=== PATIENT | female | born 1990 | race Caucasian/White ===

== ENCOUNTER 2020-06-20 14:36 | Outpatient (CLI) | payer OTHER, SELFPAY ==
[2020-06-20 18:30] LABS: Basophils Percent Auto 0.3 % (0.2-1.2); Eosinophils Absolute Auto 0.1 K/mm3 (0-0.3); Eosinophils Percent Auto 0.8 % (0-4.4); Hematocrit 36.2 % (37.0-47.0); Hemoglobin 12.3 g/dL (12.0-15.0); Immature Granulocyte Absolute 0.06 K/mm3 (0.00-0.031); Immature Granulocyte Percent A 0.7 % (0-0.5); Lymphocytes Absolute Auto 1.88 K/mm3 (0.9-3.2); Lymphocytes Percent Auto 21.6 % (18.3-44.2); Mean Corpuscular Hemoglobin 31.5 pg (26-34); Mean Corpuscular Volume 92.8 fl (80-100); Mean Platelet Volume 11.5 fl (7.4-10.4); Monocytes Absolute Auto 0.7 K/mm3 (0.1-0.6); Neutrophils Percent Auto 68.6 % (45.5-73.1); Platelet Count Result 263 k/mm3 (150-375); Red Cell Distribution Width 11.5 % (11.5-14.5); White Blood Count 8.7 K/mm3 (4.5-10.0)
[2020-06-20 18:33] LABS: Add Urine Microscopic? NO; Appearance Urine Clear (Clear); Bilirubin Urine Negative (Negative); Blood Urine Negative (Negative); Color Urine Yellow (Yellow); Glucose Urine UA Negative (Negative); Ketones Urine Negative (Negative); Leukocyte Esterase Ur Negative LEU/UL (NEGATIVE); Nitrate Urine Negative (Negative); Protein Urine Negative (Negative); Specific Grav Ur 1.011 (1.001-1.035); Urobilinogen Urine Negative mg/dL (<2.0)
[2020-06-20 19:34] LABS: Vitamin D 25 Hydroxy 47.2 ng/mL
[2020-06-20 19:49] LABS: Thyroid Stimulating Hormone 0.856 uIU/mL (0.465-4.680)
[2020-06-20 19:57] LABS: Hepatitis B Surface Antigen Negative (Negative); Rubella IgG Antibody 1.2 IU/ML
[2020-06-20 20:39] LABS: HIV 1/2 Ab P24 Ag Result Negative (Negative)
[2020-06-20 20:50] LABS: Hepatitis C Virus Antibody Negative (Negative)
[2020-06-21 06:59] LABS: Rapid Plasma Reagin Non-Reactive (NonReactive)
[2020-06-24 00:28] LABS: Hematocrit 36.4 % (35.0-45.0); Hemoglobin 12.2 g/dL (11.7-15.5); MCH 32.5 pg (27.0-33.0); MCV 97.1 FL (80.0-100.0); RDW 12.2 % (11.0-15.0); Red Blood Cell Count 3.75 Mill/uL (3.80-5.10)
[2020-06-28 19:31] LABS: CF Result POSITIVE (NEGATIVE); Ethnicity CAUCASIAN
== END 2020-06-20 14:37 | disposition home or self-care (01) ==
LOC: ANHBWCLAB 14:37
PROVIDERS: Visit Provider Obstetrics & Gynecology
DX: Z34.91 Encounter for supervision of normal pregnancy, unspecified, first trimester (principal); Z3A.11 11 weeks gestation of pregnancy
CPT/HCPCS: 36415; 81003; 81220; 82306; 83021; 84443; 85025; 86592; 86703; 86762; 86787; 86803; 86850; 86900; 86901; 87086; 87088; 87340; G0432

== ENCOUNTER 2020-10-17 14:39 | Outpatient (CLI) | payer OTHER, SELFPAY ==
[2020-10-17 15:05] LABS: Alanine Aminotransferase 24 U/L (4-35); Albumin Level 3.7 g/dL (3.5-5.1); Alkaline Phosphatase 43 U/L (38-126); Aspartate Amino Transferase 20 U/L (14-36); Bilirubin,Total 0.3 mg/dL (0.2-1.3)
[2020-10-23 22:27] LABS: Chenodeoxycholic Acid 0.8 umol/L (< OR = 3.9); Cholic Acid <0.5 umol/L (< OR = 2.8); Deoxycholic Acid 0.8 umol/L (< OR = 2.3); Total Bile Acids 1.6 umol/L (< OR = 8.3)
== END 2020-10-17 14:40 | disposition home or self-care (01) ==
PROVIDERS: Visit Provider Obstetrics & Gynecology
DX: R10.11 Right upper quadrant pain (principal)
CPT/HCPCS: 36415; 80076; 82542

== ENCOUNTER 2020-11-15 16:36 | Outpatient (CLI) | payer OTHER, SELFPAY ==
[2020-11-15 17:07] LABS: Basophils Percent Auto 0.4 % (0.2-1.2); Eosinophils Absolute Auto 0.1 K/mm3 (0-0.3); Eosinophils Percent Auto 0.8 % (0-4.4); Hematocrit 34.7 % (37.0-47.0); Hemoglobin 11.8 g/dL (12.0-15.0); Immature Granulocyte Percent A 1.9 % (0-0.5); Lymphocytes Absolute Auto 2.05 K/mm3 (0.9-3.2); Lymphocytes Percent Auto 19.2 % (18.3-44.2); Mean Corpuscular Hemoglobin 31.1 pg (26-34); Mean Corpuscular Volume 91.3 fl (80-100); Mean Platelet Volume 10.9 fl (7.4-10.4); Monocytes Absolute Auto 0.9 K/mm3 (0.1-0.6); Neutrophils Absolute Auto 7.4 K/mm3 (1.3-6.7); Neutrophils Percent Auto 69.7 % (45.5-73.1); Platelet Count Result 197 k/mm3 (150-375); Red Cell Distribution Width 11.9 % (11.5-14.5); White Blood Count 10.7 K/mm3 (4.5-10.0)
[2020-11-15 17:59] LABS: HIV 1/2 Ab P24 Ag Result Negative (Negative)
[2020-11-16 11:20] LABS: Rapid Plasma Reagin Non-Reactive (NonReactive)
== END 2020-11-15 16:37 | disposition home or self-care (01) ==
LOC: ANHLAB 16:37
PROVIDERS: Visit Provider Obstetrics & Gynecology
DX: Z34.90 Encounter for supervision of normal pregnancy, unspecified, unspecified trimester (principal); Z3A.00 Weeks of gestation of pregnancy not specified
CPT/HCPCS: 36415; 85025; 86592; 86703; G0432

== ENCOUNTER 2021-01-11 11:49 | Outpatient (RCR) | payer OTHER, SELFPAY ==
[2021-01-03 13:09] VITALS: BP 127/70; PULSE 73
--- NOTE | ~2021-01-11 | US_ITS ---
EXAMINATION: US OB limited DATE: 01/11/2021 12:28 INDICATION: Assess amniotic fluid index in a term , past due date TECHNIQUE: Real-time ultrasound of the pelvis was performed. The interpreting radiologist was not pre sent for the study. COMPARISON: None. FINDINGS: There is a single living fetus in vertex presentation. The placenta is anterior fundal. heart rate is 132 beats per minute (bpm). The amniotic fluid index is 15.6 cm, which is normal (5th%-95%: 7 .1-21.4 cm at 40 weeks estimated gestational age). IMPRESSION: 1. Single living fetus in vertex presentation with heart rate of 132 bpm. 2. Normal amniotic fluid index of 15.6 cm. Reviewed, dictated and finalized at location A. IMPRESSION: 1. Single living fetus in vertex presentation with heart rate of 132 bpm . 2. Normal amniotic fluid index of 15.6 cm.
[2021-01-11 12:35] VITALS: BP 123/66; PULSE 70
== END 2021-02-13 09:33 | disposition home or self-care (01) ==
LOC: ANHOBOP 11:49
PROVIDERS: Visit Provider Obstetrics & Gynecology
DX: O36.8330 Maternal care for abnormalities of the fetal heart rate or rhythm, third trimester, not applicable or unspecified (principal); Z3A.39 39 weeks gestation of pregnancy; O48.0 Post-term pregnancy; Z3A.40 40 weeks gestation of pregnancy
CPT/HCPCS: 59025; 76815

== ENCOUNTER 2021-01-16 05:16 | Inpatient (IN) | payer OTHER, SELFPAY ==
[2021-01-16] VITALS (23 sets, daily range): BP systolic 99–129; BP diastolic 46–95; PULSE 57–94; RESP 16–18; TEMP 36.2–36.8; BMI 35.7
[2021-01-16 05:59] LABS: Basophils Percent Auto 0.4 % (0.2-1.2); Eosinophils Absolute Auto 0.1 K/mm3 (0-0.3); Hematocrit 36.8 % (37.0-47.0); Hemoglobin 12.7 g/dL (12.0-15.0); Immature Granulocyte Absolute 0.21 K/mm3 (0.00-0.031); Immature Granulocyte Percent A 2.2 % (0-0.5); Lymphocytes Absolute Auto 2.27 K/mm3 (0.9-3.2); Lymphocytes Percent Auto 23.5 % (18.3-44.2); Mean Corpuscular HGB Conc 34.5 g/dl (32-36); Mean Corpuscular Volume 92.7 fl (80-100); Mean Platelet Volume 11.5 fl (7.4-10.4); Monocytes Absolute Auto 0.8 K/mm3 (0.1-0.6); Monocytes Percent Auto 8.4 % (2.6-8.5); Neutrophils Absolute Auto 6.2 K/mm3 (1.3-6.7); Neutrophils Percent Auto 64.5 % (45.5-73.1); Platelet Count Result 199 k/mm3 (150-375); Red Blood Count 3.97 M/mm3 (4.2-5.4); Red Cell Distribution Width 11.9 % (11.5-14.5); White Blood Count 9.6 K/mm3 (4.5-10.0)
--- NOTE | 2021-01-16 06:45 | LDADM ---
This patient, Valeria Haq, was admitted to Labor/Delivery/Recovery 103 on 01/16/21 at 05:16. Plans for labor, pain management and were discussed with patient. Patient/family oriented to hospital policies and general routines including ID bracelet, bed and alarms, visiting hours, pain management, procedures, bathroom and other care routines, personal items, smoking policy, room service/diet and guest tray routines, infant security routines, and visiting hours. Patient/Family are encouraged to report perceived risks to care and to ask questions if they do not understand what they are told or what they should do. See OBIX for further documentation.
[2021-01-16] MEDS: DINOPROSTONE 10 MG VAG INSERT VAGINAL (07:40)
[2021-01-16] MEDS: LACTATED RINGERS 1,000 ML 125 ML IV CONT (07:48)
[2021-01-16] MEDS: AMPICILLIN 2 GM/NS 100 ML 2 GM/100 ML BAG IVPB (07:50)
[2021-01-16 10:28] LABS: Rapid Plasma Reagin Non-Reactive (NonReactive)
[2021-01-16] MEDS: AMPICILLIN 1 GM/NS 50 ML 1 GM/50 ML BAG IVPB ×3 (11:51→19:48)
--- NOTE | 2021-01-16 16:41 | WPDANESEPP ---
Anes - Eval Pre Procedure Procedure: labor epidural Date/Time: 01/16/21 16:41 Surgeon: russell Pre Op Diagnosis: IOL Patient Data Age: 30 Gender: F Height: 1.61 m Weight: 93 kg Last Vital Signs Temp 36.6 C 01/16/21 13:30 Pulse 67 01/16/21 14:01 Resp 16 01/16/21 14:13 BP 118/56 L 01/16/21 14:01 Allergies Allergy/AdvReac Type Severity Reaction Status Date / Time No Known Allergies Allergy Verified 01/16/21 08:12 Home Medications Medication Instructions Recorded Confirmed Type fluticasone propionate 50 1 spray INTRANASAL DAILY 05/19/20 01/16/21 History mcg/actuation nasal spray,suspension magnesium 400 mg PO DAILY 12/09/20 01/16/21 History omega-3 fatty acids [Fish Oil] 2,500 mg PO DAILY 12/09/20 01/16/21 History prenat.vits,frank,xdc-lmce-kjalh 1 tablet PO DAILY 12/09/20 01/16/21 History [ #2] famotidine [Pepcid] 20 mg PO DAILY 01/16/21 01/16/21 History Laboratory Tests 01/16/21 01/16/21 01/16/21 05:53 05:53 05:53 WBC 9.6 K/mm3 K/mm3 (4.5-10.0) RBC 3.97 M/mm3 L M/mm3 (4.2-5.4) Hgb 12.7 g/dL g/dL (12.0-15.0) Hct 36.8 % L % (37.0-47.0) MCV 92.7 fl fl (80-100) MCH 32.0 pg pg (26-34) MCHC 34.5 g/dl g/dl (32-36) RDW 11.9 % % (11.5-14.5) Plt Count 199 k/mm3 k/mm3 (150-375) MPV 11.5 fl H fl (7.4-10.4) Immature Gran % (Auto) 2.2 % H % (0-0.5) Neut % (Auto) 64.5 % % (45.5-73.1) Lymph % (Auto) 23.5 % % (18.3-44.2) [place] % (Auto) 8.4 % % (2.6-8.5) Eos % (Auto) 1.0 % % (0-4.4) Baso % (Auto) 0.4 % % (0.2-1.2) Lymph # (Auto) 2.27 K/mm3 K/mm3 (0.9-3.2) [place] # (Auto) 0.8 K/mm3 H K/mm3 (0.1-0.6) Eos # (Auto) 0.1 K/mm3 K/mm3 (0-0.3) Baso # (Auto) 0.0 K/mm3 K/mm3 (0.0-0.1) Abs Immat Gran (auto) 0.21 K/mm3 H K/mm3 (0.00-0.031) Absolute Neuts (auto) 6.2 K/mm3 K/mm3 (1.3-6.7) Absolute Nucleated RBC 0.0 K/mm3 K/mm3 (0.0-0.012) Nucleated RBC % 0.0 % % (0.0-0.2) RPR Non-reactive (NonReactive) Blood Type A Positive Antibody Screen Negative Patient hx anesthesia problems: none Family hx anesthesia problems: none Results Review: All pre-operative results and documents have been reviewed as part of the pre-operative evaluation. [facility] Past Medical History Medical History Acid reflux Anxiety Cystic fibrosis carrier Depression IBS (irritable bowel syndrome) Surgical History Surgical History No pertinent past surgical history Family History Family History Grandparent Carcinoma of colon Hypertension Social History Social History Smoking status: Former smoker Tobacco type: cigarettes Second hand tobacco smoke exposure: No Alcohol intake: current Substance use: never Substance use type: does not use and marijuana Spiritual care concerns: No Exam Day of Procedure 01/16/21 16:41
[2021-01-16] MEDS: miSOPROStol 25 MCG TABLET VAGINAL (21:26)
[2021-01-17] VITALS (116 sets, daily range): BP systolic 89–222; BP diastolic 38–199; PULSE 50–161; RESP 13–18; TEMP 36.6–37.2; O2SAT 97–100
[2021-01-17] MEDS: AMPICILLIN 1 GM/NS 50 ML 1 GM/50 ML BAG IVPB ×4 (00:02→13:07)
[2021-01-17] MEDS: fentaNYL CITRATE INJ (*CRX) 100 MCG/2 ML VIAL 50 MCG IV PUSH ×2 (01:54→03:11)
[2021-01-17] MEDS: miSOPROStol 25 MCG TABLET VAGINAL (01:56)
[2021-01-17] MEDS: fentaNYL CITRATE INJ (*CRX) 100 MCG/2 ML VIAL IV PUSH (04:48)
[2021-01-17] MEDS: LACTATED RINGERS 1,000 ML 125 ML IV CONT ×3 (04:51→16:24)
--- NOTE | 2021-01-17 06:16 | PM.IMHP ---
H&P: HPI History of Present Illness Date/Time: 01/16/21 06:16 Patient at 41 weeks by EDC of 01/08/21 which was established by LMP 04/03/20 consistent with a 7 week ultrasound. PNC has been uncomplicated. She was found to be a CF carrier. Partner recommended for testing. She has been counseled regarding risk benefit of medical induction of labor and risk of postdates. She agreed to induction at 41 weeks. GBS positive. Labs reviewed. Chief Complaint: Medical induction of labor. Review of Systems Review of Systems: All systems reviewed & are unremarkable except as noted in HPI and below Constitutional: Constitutional: Reports no additional constitutional complaints and Denies headache(s) Eyes: Eyes: Denies spots in vision ENT: Reports system reviewed and no additional complaints, except as documented and Denies headache(s) Cardiovascular: Cardiovascular: Denies chest pain and Denies dyspnea Respiratory: Respiratory: Denies dyspnea Gastrointestinal: Gastrointestinal: Reports no additional gastrointestinal complaints Genitourinary: Genitourinary: Reports amenorrhea Musculoskeletal: Musculoskeletal: Reports no additional musculoskeletal complaints Integumentary/Breasts: Skin/Breast: Denies breast mass and Denies rash Neurologic: Denies headache(s) Psychiatric: Psychiatric: Reports no additional psychiatric complaints PMFSH Past Medical History Medical History Acid reflux Anxiety Cystic fibrosis carrier Depression IBS (irritable bowel syndrome) Surgical History Surgical History No pertinent past surgical history Family History Family History Grandparent Carcinoma of colon Hypertension Social History Social History Smoking status: Former smoker Tobacco type: cigarettes Second hand tobacco smoke exposure: No Alcohol intake: current Substance use: never Substance use type: does not use and marijuana Spiritual care concerns: No Meds Home Medications and Allergies Home Medications Medication Instructions Recorded Confirmed Type fluticasone propionate 50 1 spray INTRANASAL DAILY 05/19/20 01/16/21 History mcg/actuation nasal spray,suspension magnesium 400 mg PO DAILY 12/09/20 01/16/21 History omega-3 fatty acids [Fish Oil] 2,500 mg PO DAILY 12/09/20 01/16/21 History prenat.vits,frank,hid-fyok-fgdza 1 tablet PO DAILY 12/09/20 01/16/21 History [ #2] famotidine [Pepcid] 20 mg PO DAILY 01/16/21 01/16/21 History Allergies Allergy/AdvReac Type Severity Reaction Status Date / Time No Known Allergies Allergy Verified 01/16/21 08:12 Vital Signs Vital Signs - 24 hr 01/16/21 06:33 01/16/21 06:35 01/16/21 07:01 Temperature 97.1 F L Pulse Rate 66 57 L Respiratory Rate 18 Blood Pressure 116/56 L 99/46 L 01/16/21 07:45 01/16/21 07:53 01/16/21 08:01 Temperature Pulse Rate 68 70 Respiratory Rate 18 Blood Pressure 124/72 100/71 01/16/21 08:16 01/16/21 09:55 01/16/21 10:01 Temperature 97.6 F Pulse Rate 83 64 61 Respiratory Rate 18 Blood Pressure 112/64 117/64 122/67 01/16/21 11:01 01/16/21 12:01 01/16/21 12:30 Temperature Pulse Rate 64 67 Respiratory Rate 16 Blood Pressure 115/58 L 120/63 01/16/21 13:30 01/16/21 13:31 01/16/21 14:01 Temperature 98 F Pulse Rate 64 67 Respiratory Rate 18 Blood Pressure 129/69 118/56 L 01/16/21 14:13 01/16/21 18:44 01/16/21 19:52 Temperature Pulse Rate 71 62 Respiratory Rate 16 Blood Pressure 104/92 H 127/68 01/16/21 20:12 01/16/21 22:01 01/16/21 22:31 Temperature 98.2 F Pulse Rate 61 60 Respiratory Rate Blood Pressure 102/57 L 105/57 L 01/16/21 23:01 01/16/21 23:31 01/17/21 02:03 Temperature Pulse Rate 66 94 68 Respira
--- NOTE | 2021-01-17 06:24 | PM.OBPNVD ---
OB - PN: Subj Subjective Date/time seen: 01/16/21 0830 Cat 1 tracing ctx mild q 4 Continue cervidil. OB - PN: Obj Data Labs CBC & Chem 7: 01/16/21 05:53 Labs: Laboratory Results - last 24 hr 01/16/21 01/16/21 05:53 05:53 RPR Non-reactive Blood Type A Positive Antibody Screen Negative OB - PN A/P Time Spent With Patient Time: Total time spent is greater than 50% in coordination of care (as documented) at patient's floor/unit and/or counseling patient:
[2021-01-17] MEDS: OXYTOCIN 30 UNITS/NS 500 ML 30 UNITS/500 ML BAG 6 UNITS IV CONT (08:50)
--- NOTE | 2021-01-17 10:24 | PM.OBPNVD ---
OB - PN: Subj Subjective Date/time seen: 01/17/21 0805 FHT 125 Cat 1 ctx q 3-4 cx 1.5/75-80%,-2 AROM clear Will start Pitocin Patient has received epidural OB - PN: Obj Data Labs CBC & Chem 7: 01/16/21 05:53 Labs: Laboratory Results - last 24 hr 01/16/21 05:53 RPR Non-reactive OB - PN A/P Time Spent With Patient Time: Total time spent is greater than 50% in coordination of care (as documented) at patient's floor/unit and/or counseling patient:
[2021-01-17] MEDS: ONDANSETRON INJ 4 MG/2 ML VIAL IV PUSH (13:07)
[2021-01-17] MEDS: ceFAZolin 2 GM/D5W 50 ML 2 GM/50 ML BAG 100 GM (16:45)
--- NOTE | 2021-01-17 17:01 | WPDANESEPP ---
Anes - Eval Pre Procedure Procedure: Operation Date: 01/17/21 16:45 Proposed Procedures p Section - Brennon Hutchins MD Date/Time: 01/17/21 17:01 Pre Op Diagnosis: IOL Patient Data Age: 30 Gender: F Height: 1.61 m Weight: 93 kg Last Vital Signs Temp 36.8 C 01/17/21 15:00 Pulse 78 01/17/21 16:32 Resp 16 01/16/21 14:13 BP 222/199 H 01/17/21 16:42 Pulse Ox 100 01/17/21 08:45 Allergies Allergy/AdvReac Type Severity Reaction Status Date / Time No Known Allergies Allergy Verified 01/16/21 08:12 Home Medications Medication Instructions Recorded Confirmed Type fluticasone propionate 50 1 spray INTRANASAL DAILY 05/19/20 01/16/21 History mcg/actuation nasal spray,suspension magnesium 400 mg PO DAILY 12/09/20 01/16/21 History omega-3 fatty acids [Fish Oil] 2,500 mg PO DAILY 12/09/20 01/16/21 History prenat.vits,frank,ktr-ndem-revym 1 tablet PO DAILY 12/09/20 01/16/21 History [ #2] famotidine [Pepcid] 20 mg PO DAILY 01/16/21 01/16/21 History Patient hx anesthesia problems: none Family hx anesthesia problems: none Results Review: All pre-operative results and documents have been reviewed as part of the pre-operative evaluation. PMFSH Past Medical History Medical History Acid reflux Anxiety Cystic fibrosis carrier Depression IBS (irritable bowel syndrome) Surgical History Surgical History No pertinent past surgical history Family History Family History Grandparent Carcinoma of colon Hypertension Social History Social History Smoking status: Former smoker Tobacco type: cigarettes Second hand tobacco smoke exposure: No Alcohol intake: current Substance use: never Substance use type: does not use and marijuana Spiritual care concerns: No Exam Day of Procedure 01/17/21 17:01
--- NOTE | 2021-01-17 18:05 | PM.OBPNVD ---
OB - PN: Subj Subjective Date/time seen: 01/17/21 18:05 At approximately 1615 tracing with 7 min bradycardic episode relieved with position and pitocin off. Prior to that had non repetitive mild late. Moderate variability. Ctx q 2. Cervix 3.5-4/ 80%effaced. IUPC and amnioinfusion placed. Earlier pitocin was stopped due to repetitive moderate variables. Cervix then was 3 cm. Pitocin restarted and had intermittent late nonrepetitive decels and mild intermittent variables and then had the bradycardic episode which she was recommended for ceserean delivery. Tracing category 2 remote from delivery. Recommendation for primary ceserean section for intolerance to labor. She was informed of risk benefit of ceserean section. OB - PN: Obj Data Labs CBC & Chem 7: 01/16/21 05:53 OB - PN A/P Time Spent With Patient Time: Total time spent is greater than 50% in coordination of care (as documented) at patient's floor/unit and/or counseling patient:
--- NOTE | 2021-01-17 18:20 | P.OP_ITS ---
Procedure Note - Detailed Date of Procedure 01/18/21 Pre-op Diagnosis 1. intolerance to labor Post-op Diagnosis same Procedure Performed Primary low transverse ceserean section. Surgeon Brennon Hutchins MD Anesthesia epidural Indications Category 2 tracing remote from delivery. intolerance to labor. Findings Male , in the LOP position. Bandelero cord around trunk twice and the arm. Normal uterus fallopian tubes and ovaries. Description of Procedure After informed consent, risks and benefits of the procedure was discussed with the patient. The patient was taken to the operating room where she was placed in the dorsal lithotomy position with leftward tilt. After the prior placed epidural anesthesia was found to be adequate, she was then prepped and draped in the usual sterile fashion. A Pfannenstiel skin incision was made with a scalpel and carried through to the underlying layer of fascia. The fascia was then nicked in the midline, extending bilaterally. The fascia was dissected off the rectus muscles bluntly and sharply, superiorly and inferiorly. The rectus muscles were in the midline, and peritoneum was identified and entered bluntly. The pelvic organs were visualized. The bladder blade was then inserted. The vesicouterine peritoneum was identified and entered sharply with Metzenbaum scissors and extended bilaterally and then the bladder flap was created digitally. The low transverse uterine incision was then made with the scalpel and extended with bilateral index fingers in a crescent-shaped fashion. The head was delivered and the rest of the infa nt was delivered. The cord was wrapped around the abdomen twice and the arm was also enclosed an arm. The cord was untangled from the trunk and arm. The nose and mouth suctioned. The cord was clamped twice and cut. The infant was then handed off to the awaiting pediatric staff. The placenta was then delivered manually. The uterine cavity was sponge curretted. The uterus was then exteriorized. The uterine incision was then closed with 0 vicryl in a running locked fashion. A figure of eight of 0 vicryl at the right of incision was used for hemostasis. Hemostasis noted. A second layer of 0 vicryl was used in an imbricating fashion for hemostasis. The uterus was then returned to the abdomen. Bilateral gutters were cleared off all clots and debris. The uterine incision was noted to be hemostatic. Interceed placed on uterine incision and vertically on front of uterus. The muscle bellies were inspected and noted to be hemostatic. The subfascial layer was noted to be hemostatic, and the fascia was closed with 0 Vicryl in a running fashion. The subcutaneous layer was then closed with 3-0 Vicryl in a subcutaneous fashion. The skin was closed with dissolveable robert. Skin dermabond applied at incision. All instruments, needle, and lap counts were correct x3. The patient was taken to the recovery room in stable condition. Estimated Blood Loss -710.0 Urine Output -200.0
[2021-01-17] MEDS: IBUPROFEN 600 MG TABLET PO (19:51)
--- NOTE | 2021-01-17 20:27 | OBPPTRN ---
Patient transferred to post room #288 via stretcher. Support person, Jani, present. Oriented to unit, room, information board, rooming in, admission packet and security measures. Patient verbalizes understanding.
[2021-01-17] MEDS: HYDROcodone/acetaminophen (*CRX) 10-325 MG TABLET 1 TAB PO (20:58)
[2021-01-17] MEDS: LANOLIN (LANSINOH) 7.5 GM CREAM 1 APPLIC TOPICAL (20:59)
[2021-01-17] MEDS: HYDROmorphone HCL INJ (*CRX) 1 MG/ML SYR 0.5 MG IV PUSH (21:40)
[2021-01-17] MEDS: DEXTROSE 5%/0.45% SOD CHL 1,000 ML 125 ML IV CONT (23:30)
[2021-01-18] VITALS: BP 99/58; PULSE 60; RESP 16; TEMP 36.9; O2SAT 97
[2021-01-18] MEDS: ONDANSETRON INJ 4 MG/2 ML VIAL IV PUSH (00:37)
[2021-01-18] MEDS: KETOROLAC 30 MG/ML VIAL (*BKC) IV PUSH (00:37)
[2021-01-18 03:55] VITALS: BP 99/54; PULSE 68; RESP 16; TEMP 36.8; O2SAT 99
[2021-01-18 05:15] LABS: Basophils Percent Auto 0.3 % (0.2-1.2); Eosinophils Percent Auto 0.2 % (0-4.4); Hematocrit 33.5 % (37.0-47.0); Hemoglobin 11.2 g/dL (12.0-15.0); Immature Granulocyte Absolute 0.14 K/mm3 (0.00-0.031); Immature Granulocyte Percent A 1.1 % (0-0.5); Lymphocytes Absolute Auto 0.96 K/mm3 (0.9-3.2); Lymphocytes Percent Auto 7.3 % (18.3-44.2); Mean Corpuscular HGB Conc 33.4 g/dl (32-36); Mean Corpuscular Volume 95.7 fl (80-100); Monocytes Absolute Auto 0.7 K/mm3 (0.1-0.6); Monocytes Percent Auto 5.6 % (2.6-8.5); Neutrophils Absolute Auto 11.2 K/mm3 (1.3-6.7); Neutrophils Percent Auto 85.5 % (45.5-73.1); Platelet Count Result 141 k/mm3 (150-375); Red Cell Distribution Width 12.1 % (11.5-14.5); White Blood Count 13.1 K/mm3 (4.5-10.0)
[2021-01-18 07:55] VITALS: BP 102/64; PULSE 70; RESP 16; TEMP 36.7; O2SAT 99
[2021-01-18] MEDS: HYDROcodone/acetaminophen (*CRX) 10-325 MG TABLET 1 TAB PO ×4 (08:08→22:01)
[2021-01-18] MEDS: DOCUSATE SODIUM 100 MG CAPSULE PO ×2 (08:09→17:21)
[2021-01-18] MEDS: MULTIVIT/MIN/PREN/FOL AC/IRON TABLET 1 TAB PO (08:09)
[2021-01-18] MEDS: IBUPROFEN 600 MG TABLET PO ×3 (08:09→23:36)
[2021-01-18 11:54] VITALS: BP 106/61; PULSE 66; RESP 16; TEMP 36.8; O2SAT 100
--- NOTE | 2021-01-18 12:30 | PC.NURSE ---
Attempt to consult with pt., mother is attempting to calm infant. is awake and rooting, mother states infant just fed for 20 minutes. Mother reports tenderness with feeding and states will nurse and sleep while at breast. Reviewed feeding cues, frequencies, duration of feedings, feeding elimination flow sheet, and signs of adequate intake. Demonstrated stimulation techniques to wake for feeding. Assisted with to breast. Reviewed positioning/alignment in football, holding breast in ?C? hold and guided asymmetrical latch on. Reviewed rational for each. able to latch correctly within a few attempts. Infant nursed eagerly with steady draws and occasional swallowing noted, some pausing noted. Reviewed signs of a correct latch, effective nursing and suck swallow ratio. Suggested mother stimulate while feeding to increase stimulate, increase intake and to assist with maintaining deep latch. would slip to shallow latch causing tenderness. Demonstrated how to adjust latch more deeply while feeding if needed. Mother reports she can feel the difference in latch with less tenderness. Nipple care reviewed of lanolin after feedings, warm compresses as needed. Instructed mother to call out for RN assistance if she is unable to latch for feeding or she has discomfort with nursing. Instructed feeding should be initiated three hours from start of last feeding or if feeding cues are noted before. Mother voiced understanding of information shared.
--- NOTE | 2021-01-18 12:59 | P.PNOB_ITS ---
OB - PN: Subj Subjective Date/time seen: 01/18/21 0815 She states adequate pain control. Has not sat up in chair yet. Baby is latching well. No leg pain. Lochia decreasing. Tolerating diet. OB - PN: Obj Data Labs CBC & Chem 7: 01/18/21 04:01 Labs: Laboratory Results - last 24 hr 01/18/21 04:01 WBC 13.1 H RBC 3.50 L Hgb 11.2 L Hct 33.5 L MCV 95.7 MCH 32.0 MCHC 33.4 RDW 12.1 Plt Count 141 L MPV 12.0 H Immature Gran % (Auto) 1.1 H Neut % (Auto) 85.5 H Lymph % (Auto) 7.3 L [place] % (Auto) 5.6 Eos % (Auto) 0.2 Baso % (Auto) 0.3 Lymph # (Auto) 0.96 [place] # (Auto) 0.7 H Eos # (Auto) 0.0 Baso # (Auto) 0.0 Abs Immat Gran (auto) 0.14 H Absolute Neuts (auto) 11.2 H Absolute Nucleated RBC 0.0 Nucleated RBC % 0.0 OB - PN A/P Assessment and Plan (1) Delivery by section: Status: Acute Assessment and Plan: She is doing well. POD 1 s/p primary c/section. Routine post op care. Encourage ambulation today. Time Spent With Patient Time: Total time spent is greater than 50% in coordination of care (as documented) at patient's floor/unit and/or counseling patient: Exam Const: General: comfortable and no acute distress Eyes: General: appearance normal, both eyes and all related structures Resp: Effort & Inspection: normal respiratory effort GI: Other: incision clean dry and intact fundus firm -1 umb appropriate tender Psych: Mental Status: mental status grossly normal Affect: normal affect
--- NOTE | 2021-01-18 13:25 | WPDANLDNPN2 ---
Anes-Prog Note L&D-Neuraxial Date/Time: 01/18/21 13:25 Neuraxial medications: intrathecal PF morphine Opiod-related complaints: none Patient feedback: Patient satisfied with post-operative pain management.
--- NOTE | 2021-01-18 13:25 | WPDANLDPN2 ---
Anes-Prog Note L&D Date/Time: 01/18/21 13:25 Comfortable throughout: section Neuraxial method: spinal Epidural/Spinal procedure site: clean & non-tender Neuro status: Neuro function grossly intact. Cardiovascular status: normal Respiratory status: normal Airway patency: baseline Mental status: baseline Post-Op hydration status: normal Vital Signs: Last Vital Signs Temp 36.8 C 01/18/21 11:54 Pulse 66 01/18/21 11:54 Resp 16 01/18/21 11:54 BP 106/61 01/18/21 11:54 Pulse Ox 100 01/18/21 11:54 Pain score (VAS): 0 I/O: Intake & Output 01/17/21 01/18/21 01/18/21 23:59 07:59 15:59 Intake Total 100 800 Output Total 335 0470 8437 [facility] -[phone] Post-procedural complaints: none Patient feedback: Patient satisfied with anesthetic care.
[2021-01-18 17:10] VITALS: BP 123/68; PULSE 77; RESP 18; TEMP 36.7
[2021-01-18 20:00] VITALS: BP 129/59; PULSE 79; RESP 18; TEMP 36.4; O2SAT 99
[2021-01-18] MEDS: SIMETHICONE 80 MG TAB.CHEW PO (23:01)
[2021-01-19] MEDS: HYDROcodone/acetaminophen (*CRX) 10-325 MG TABLET 1 TAB PO ×3 (04:25→11:18)
--- NOTE | 2021-01-19 07:56 | P.PNOB_ITS ---
OB - PN: Subj Subjective Date/time seen: 01/19/21 07:56 Patient doing well this AM. Pain well controlled with medication. Denies any headache, chest pain, SOB, N/V. Tolerating PO diet. Ambulating well. Voiding without difficulty. Passing flatus. OB - PN: Obj Data Labs CBC & Chem 7: 01/18/21 04:01 OB - PN A/P Assessment and Plan (1) Delivery by section: Status: Acute Assessment and Plan: POD#2 doing well continue routine postoperative care encourage ambulation and use of IS pain management PRN pt requesting dc home today will dc home in stable condition emergency precautions reviewed f/u in office in 2 weeks Time Spent With Patient Time: Total time spent is greater than 50% in coordination of care (as documented) at patient's floor/unit and/or counseling patient: Exam Const: General: cooperative, healthy appearing, comfortable and no acute distress GI: Inspection: non-distended GI Palp: Yes Soft to palpation and No Tende rness to palpation present (GI) Other: inc c/d/i Extrem: Right lower extremity: no edema Left lower extremity: no edema Other: no calf tenderness
[2021-01-19 08:00] VITALS: BP 118/63; PULSE 64; RESP 16; TEMP 37.1; O2SAT 98
--- NOTE | 2021-01-19 08:02 | PM.OBDSVD ---
DS: Admitting Diagnosis Discharge Date 01/19/21 Admitting Diagnosis 01/16/21 OB - DS: Summary OB Procedures : None OB Procedures Intrapartum: OB Procedures: : None Peripartum Data Procedures: Procedures Operation Date: 01/17/21 16:45 Actual Procedure Side Surgeon p Section Not Applicable Brennon Hutchins MD Time Spent with Patient Time attestation: Total time spent providing and/or coordinating discharge services: DS: Data Data Completed and Pending Pending studies at discharge: Pending at discharge 01/17/21 17:06 Surgical [PTH] Routine Discharge Plan Discharge Attending physician on discharge: Amada Burger Discharging Clinician: Amada Burger Anticipated Discharge Date/Time: 01/19/21 12:00 Patient Disposition: Home, Self-Care Activity: as tolerated and pelvic rest Diet: regular Discharge Instructions: Call office ([phone]) to schedule the following appointments: 1. Postoperative/wound check in 2 weeks. 2. visit in 4-6 weeks. You may take Ibuprofen 600mg every 6 hours as needed for pain. I have sent a prescription for a stronger pain medication, Deep Water, to your pharmacy. You may take this as prescribed for breakthrough pain (pain that is not controlled with Ibuprofen). No driving for at least two weeks. You also may not drive while taking narcotics. Pain medication may make you constipated. It may be helpful to take an [id number]-vrp-[id number] stool softener, such as Colace and/or Senokot, along with the pain medication to help lessen constipation. Call office or go to ED for pain not controlled with medication, headache, chest pain, shortness of breath, fever, chills, persistent nausea or vomiting, severe abdominal pain, heavy vaginal bleeding >2 pads/hour, foul vaginal discharge or odor, any redness near incision, severe pain, pus or drainage from incision site, or problems with your breasts. Patient Instructions: Antibiotic Form Stand Alone Forms: General Discharge Information Follow-up/Referrals: Brennon Hutchins MD [Physician] - Discharge Medications: New hydrocodone-acetaminophen 5-325 mg tablet 1 - 2 tablet PO Q4-6H PRN (Reason: pain) Qty: 30 RF: 0 Continued fluticasone propionate 50 mcg/actuation spray,suspension 1 spray intranasal DAILY RF: 0 magnesium 200 mg Tablet 400 mg PO DAILY RF: 0 #2 Tablet 1 tablet PO DAILY RF: 0 Fish Oil Capsule 2,500 mg PO DAILY RF: 0 famotidine [Pepcid] 20 mg Tablet 20 mg PO DAILY RF: 0 Date of admission: 01/16/21 05:16 Primary Care Provider: PHYSICIAN NOT ON STAFF,NONSTAFF Admitting Provider: Brennon Hutchins Attending physician on admission: Brennon Hutchins Condition: Stable
[2021-01-19] MEDS: IBUPROFEN 600 MG TABLET PO (08:11)
[2021-01-19] MEDS: MULTIVIT/MIN/PREN/FOL AC/IRON TABLET 1 TAB PO (08:11)
[2021-01-19] MEDS: DOCUSATE SODIUM 100 MG CAPSULE PO (08:11)
[2021-01-19] MEDS: MEASLES,MUMPS,RUBELLA VACCINE 0.5 ML VIAL SUB-Q (08:12)
[2021-01-19] MEDS: SIMETHICONE 80 MG TAB.CHEW PO (08:28)
[2021-01-20 10:48] VITALS: BP 138/78; PULSE 71; RESP 20; TEMP 36.9; O2SAT 100
== END 2021-01-19 11:55 | disposition home or self-care (01) | DRG 788 ==
LOC: ANHOB2 01-19 08:08 → ANHLDR 01-20 09:18 → ANHOB2 01-20 09:18
PROVIDERS: Admitting Provider Obstetrics & Gynecology; Visit Provider Student in an Organized Health Care Education/Training Program
PROC: 10D00Z1 Extraction of Products of Conception, Low, Open Approach (ICD-10-PCS; CPT 59514; principal; 2021-01-17 16:45)
DX: O99.824 Streptococcus B carrier state complicating childbirth (principal); Z37.0 Single live birth; Z3A.41 41 weeks gestation of pregnancy; O99.62 Diseases of the digestive system complicating childbirth; K21.9 Gastro-esophageal reflux disease without esophagitis; K58.9 Irritable bowel syndrome, unspecified; O99.344 Other mental disorders complicating childbirth; F41.9 Anxiety disorder, unspecified; F32.A Depression, unspecified; O36.8330 Maternal care for abnormalities of the fetal heart rate or rhythm, third trimester, not applicable or unspecified; O69.2XX0 Labor and delivery complicated by other cord entanglement, with compression, not applicable or unspecified; Z14.1 Cystic fibrosis carrier; Z23 Encounter for immunization
CPT/HCPCS: 36415; 85025; 86592; 86850; 86900; 86901; 88307; 90471; 90653; 90710; A9270; G0008; J0131; J0290; J0690; J1170; J1885; J2274; J2405; J2590; J2795; J3010; J7120

== ENCOUNTER 2023-08-19 13:42 | Outpatient (CLI) | payer OTHER, SELFPAY ==
--- NOTE | ~2023-08-19 | US_ITS ---
EXAMINATION: US OB <=14 wk fetus w TV DATE: 08/19/2023 14:16 INDICATION: Amenorrhea. Establish dating of first trimester TECHNIQUE: Real-time pelvic ultrasound utilizing both a transvaginal and transabdominal probe was pe rformed. The interpreting radiologist was not present for the study. COMPARISON: None. FINDINGS: The uterus measures 13.1 x 4.7 x 6.7 cm. There is an intrauterine gestational sac. A yolk sac and fe rere pole are identified. The crown rump length measures 1.9 cm, which correlates with an estimated ge stational age of 8 weeks and 3 days. heart motion is identified measuring 171 beats per minute (bpm) by M-mode Doppler. The bilateral ovaries are not visualized. There is no free fluid in the pelvis. IMPRESSION: 1. Single living fetus with heart rate of 171 bpm. 2. Gestational age by ultrasound of 8 weeks 3 day(s) +/- 5 day(s) with ultrasound estimated date of delivery ([facility]) of 03/27/2024. Reviewed, dictated and finalized at location A. IMPRESSION: 1. Single living fetus with heart rate of 171 bpm. 2. Gestational age by ultrasound of 8 weeks 3 day(s) +/- 5 day(s) with ultraso und estimated date of delivery ([facility]) of 03/27/2024.
== END 2023-08-19 13:43 ==
LOC: GOSHIMG 13:43
PROVIDERS: PCP Obstetrics & Gynecology; Visit Provider Nurse Practitioner Obstetrics & Gynecology
DX: N91.2 Amenorrhea, unspecified (principal)
CPT/HCPCS: 76801; 76817

== ENCOUNTER 2024-03-03 13:49 | Outpatient (RCR) | payer OTHER, SELFPAY ==
[2024-03-03 15:33] VITALS: BP 113/60; PULSE 63
== END 2024-06-01 23:59 | disposition home or self-care (01) ==
LOC: ANHOBOP 13:49
PROVIDERS: Visit Provider Obstetrics & Gynecology
DX: O47.1 False labor at or after 37 completed weeks of gestation (principal); Z3A.37 37 weeks gestation of pregnancy
CPT/HCPCS: 59025

== ENCOUNTER 2024-03-16 13:47 | Outpatient (CLI) | payer OTHER, SELFPAY ==
[2024-03-16 14:06] LABS: Hematocrit 34.2 % (37.0-47.0); Hemoglobin 11.8 g/dL (12.0-15.0); Mean Corpuscular HGB Conc 34.5 g/dl (32-36); Mean Corpuscular Hemoglobin 32.2 pg (26-34); Mean Corpuscular Volume 93.4 fl (80-100); Mean Platelet Volume 11.2 fl (7.4-10.4); Platelet Count Result 164 k/mm3 (150-375); Red Blood Count 3.66 M/mm3 (4.2-5.4); Red Cell Distribution Width 12.2 % (11.5-14.5); White Blood Count 8.8 K/mm3 (4.5-10.0)
[2024-03-16 15:17] LABS: HIV 1/2 Ab P24 Ag Result Negative (Negative)
[2024-03-17 07:13] LABS: Rapid Plasma Reagin Non-Reactive (NonReactive)
== END 2024-03-16 13:48 | disposition home or self-care (01) ==
PROVIDERS: Visit Provider Obstetrics & Gynecology
DX: Z34.93 Encounter for supervision of normal pregnancy, unspecified, third trimester (principal); Z3A.00 Weeks of gestation of pregnancy not specified
CPT/HCPCS: 36415; 85027; 86592; 86703; 86850; 86900; 86901; G0432

== ENCOUNTER 2024-03-17 05:39 | Inpatient (IN) | payer OTHER, SELFPAY ==
[2024-03-17] VITALS (64 sets, daily range): BP systolic 93–132; BP diastolic 29–84; PULSE 56–621; RESP 14–118; TEMP 36.3–36.9; O2SAT 95–100; BMI 33.2
--- NOTE | 2024-03-17 05:39 | LDADM ---
This patient, Valeria Sanchez, was admitted to Labor/Delivery/Recovery 120 on 03/17/24 at 05:39. Plans for labor, pain management and were discussed with patient. Patient/family oriented to hospital policies and general routines including ID bracelet, bed and alarms, visiting hours, pain management, procedures, bathroom and other care routines, personal items, smoking policy, room service/diet and guest tray routines, infant security routines, and visiting hours. Patient/Family are encouraged to report perceived risks to care and to ask questions if they do not understand what they are told or what they should do. See OBIX for further documentation.
[2024-03-17] MEDS: LACTATED RINGERS 1,000 ML 125 ML IV CONT ×2 (06:12→07:30)
[2024-03-17] MEDS: ACETAMINOPHEN 500 MG TABLET 1000 MG PO (06:13)
[2024-03-17] MEDS: FAMOTIDINE 20 MG/2 ML VIAL IV PUSH (07:30)
[2024-03-17] MEDS: ONDANSETRON INJ 4 MG/2 ML VIAL IV PUSH ×2 (07:30→13:24)
--- NOTE | 2024-03-17 07:40 | P.HP_ITS ---
H&P: HPI History of Present Illness Date/Time: 03/17/24 07:40 Chief Complaint: Repeat section Narrative: patient is a 34-year-old at 39 weeks. course significant for prior section she has been counseled regarding trial of labor versus repeat section and has opted for repeat section. Also abnormal Pap smear hopeful no severe lesions. She has also a known positive CF carrier. Review of Systems Review of Systems: All systems reviewed & are unremarkable except as noted in HPI and below Constitutional: Constitutional: Reports no additional constitutional complaints and Denies headache(s) Eyes: Eyes: Denies spots in vision ENT: Reports system reviewed and no additional complaints, except as documented and Denies headache(s) Cardiovascular: Cardiovascular: Denies chest pain and Denies dyspnea Respiratory: Respiratory: Denies dyspnea Gastrointestinal: Gastrointestinal: Reports no additional gastrointestinal complaints Genitourinary: Genitourinary: Reports amenorrhea Musculoskeletal: Musculoskeletal: Reports no additional musculoskeletal complaints Integumentary/Breasts: Skin/Breast: Denies breast mass and Denies rash Neurologic: Denies headache(s) Psychiatric: Psychiatric: Reports no additional psychiatric complaints [facility] Past Medical History Medical History Cystic fibrosis carrier Anxiety IBS (irritable bowel syndrome) Depression Acid reflux Surgical History Surgical History History of section Family History Family History Grandparent Carcinoma of colon Hypertension Social History Social History Years smoked: 10 Smoking status: Former smoker Tobacco type: cigarettes Second hand tobacco smoke exposure: No Alcohol intake: current Substance use: never Substance use type: does not use and marijuana Spiritual care concerns: No Meds Home Medications and Allergies Home Medications ?Medication ?Instructions ?Recorded ?Confirmed ?Type magnesium 200 mg tablet 400 mg PO DAILY 12/09/20 02/26/24 History omega-3 fatty acids 2,500 mg PO DAILY 12/09/20 02/26/24 History prenat.vits,frank,oug-vmmn-flcmn 1 tablet PO DAILY 12/09/20 02/26/24 History ferrous sulfate 27 mg iron tablet 27 mg PO DAILY 11/21/23 02/26/24 History RSV vac, preF A and preF B(PF) 120 0.5 ml IM ONCE #1 ea 02/19/24 02/26/24 Rx mcg/0.5 mL IM solution (Abrysvo (PF)) Allergies Allergy/AdvReac Type Severity Reaction Status Date / Time No Known Allergies Allergy Verified 03/10/24 08:49 Vital Signs Vital Signs - 24 hr 03/17/24 05:56 03/17/24 06:01 03/17/24 06:02 Temperature Pulse Rate 77 Blood Pressure 118/67 Pulse Oximetry 98 99 03/17/24 06:06 03/17/24 06:11 03/17/24 06:16 Temperature Pulse Rate Blood Pressure Pulse Oximetry 99 98 99 03/17/24 06:21 03/17/24 06:26 03/17/24 06:30 Temperature Pulse Rate 72 Blood Pressure 123/68 Pulse Oximetry 99 99 03/17/24 06:31 03/17/24 06:36 03/17/24 06:41 Temperature Pulse Rate Blood Pressure Pulse Oximetry 98 98 99 03/17/24 06:45 03/17/24 06:46 03/17/24 06:51 Temperature Pulse Rate 77 Blood Pressure 111/58 L Pulse Oximetry 99 99 03/17/24 06:56 03/17/24 07:00 03/17/24 07:01 Temperature 97.6 F Pulse Rate 73 Blood Pressure 112/54 L Pulse Oximetry 99 100 03/17/24 07:06 03/17/24 07:11 03/17/24 07:15 Temperature Pulse Rate 77 Blood Pressure 129/76 Pulse Oximetry 97 100 03/17/24 07:16 03/17/24 07:21 03/17/24 07:26 Temperature Pulse Rate Blood Pressure Pulse Oximetry 100 99 100 03/17/24 07:30 Temperature Pulse Rate 78 Blood Pressure 132/66 Pulse Oximetry Exam Const: General: no acute distress Eyes: General: appearance normal, both eyes and all related structures Resp: Effort & Inspection: normal respiratory effort Cardio: Rate: regular rate GI: Other: Gravid no fundal tenderness no right upper quadrant pain Skin: General skin exam: no rashes or lesions noted Neuro: Cognition (Neuro): normal cognition Extrem: General: normal to inspection Psych: Mental Status: mental status grossly normal Assessment and Plan Assessment and plan (1) Previous section complicating : Code(s): O34.219 - Maternal care for unspecified type scar from previous delivery Status: Acute Plan will proceed with repeat section.
[2024-03-17] MEDS: ceFAZolin 2 GM/D5W 50 ML 2 GM/50 ML BAG IVPB (07:41)
--- NOTE | 2024-03-17 08:58 | W.PM.OBCSD ---
OB - Delivery Note Procedure Delivery date: 03/17/24 Pre-op diagnosis: Previous Delivery Post-op Diagnosis: Same Induction method: None Prior to decision for section, ACOG/SM labor guidelines were considered and discussed with the patient and staff. Decision made to proceed with the section.: Yes Procedure Performed: Repeat Surgeon: Brennon Hutchins MD Anesthesia type: Spinal Description of Procedure/Findings: Findings:Male 7 lbs 1oz, normal fallopian tubes and ovaries. After informed consent, risks and benefits of the procedure was discussed with the patient. The patient was taken to the operating room where she was placed in the dorsal lithotomy position with leftward tilt. After the prior placed epidural anesthesia was found to be adequate, she was then prepped and draped in the usual sterile fashion. A Pfannenstiel skin incision was made with a scalpel and carried through to the underlying layer of fascia. The fascia was then nicked in the midline, extending bilaterally. The fascia was dissected off the rectus muscles bluntly and sharply, superiorly and inferiorly. The rectus muscles were in the midline, and peritoneum was identified and entered bluntly. The pelvic organs were visualized. The bladder blade was then inserted.The lower uterine segment was noted to be thin, no window. Bladder well displaced below this area. A low transverse uterine incision was then made with the scalpel and extended with bilateral index fingers in a crescent-shaped fashion. The head was delivered and the rest of the infant was delivered. The nose and mouth suctioned. The rest of delivered. The cord was clamped twice and cut. The was then handed off to the awaiting pediatric staff. The placenta was then delivered manually. The uterine cavity was sponge curretted. The uterus was then exteriorized. The uterine incision was then closed with 0 vicryl in a running locked fashion. A second layer of interrupted figure of eight sutures with 0 vicryl. Cul de sac irrigated. The uterus was then returned to the abdomen. Bilateral gutters were cleared off all clots and debris. The uterine incision was noted to be hemostatic. Interceed placed on uterine incision. The muscle bellies were inspected and noted to be hemostatic. The peritoneum was approximated with 3.0 vicryl. The subfascial layer was noted to be hemostatic, and the fascia was closed with 0 Vicryl in a running fashion. The skin was closed with 4.0 vicryl on a Veazie needle. Skin dermabond applied at incision. Dressing placed. All instruments, needle, and lap counts were correct x3. The patient was taken to the recovery room in stable condition. Specimen: No Estimated Blood Loss: 295 Drains: No Packing: No Pathology: None sent Complications: No immediate complications Condition: Stable Disposition: Floor [place] Baby Date of : 03/17/24 Time of : 08:09 Gestational Age by Date: 39 Infant gender: Male Weight (pounds): 7 Weight (ounces): 1 presentation: vertex Placenta delivery description: Manual Removal score one minute: 8 score five minutes: 9
[2024-03-17] MEDS: OXYTOCIN 30 UNITS/NS 500 ML 30 UNITS/500 ML BAG 125 UNITS IV CONT (09:38)
[2024-03-17] MEDS: HYDROcodone/acetaminophen (*CRX) 10-325 MG TABLET 1 TAB PO (11:30)
[2024-03-17] MEDS: SIMETHICONE 80 MG TAB.CHEW PO ×2 (11:31→17:49)
--- NOTE | 2024-03-17 11:41 | OBPPTRN ---
Patient transferred to post room #282 via stretcher. Support person present. Oriented to unit, room, information board, rooming in, admission packet and security measures. Patient verbalizes understanding.
[2024-03-17] MEDS: LIDOCAINE 5% PATCH 1 PATCH TRANSDERM (13:30)
[2024-03-17] MEDS: DEXTROSE 5%/0.45% SOD CHL 1,000 ML 125 ML IV CONT (13:51)
[2024-03-17] MEDS: KETOROLAC 15 MG/ML VIAL (*BKC) IV PUSH ×2 (15:36→21:31)
--- NOTE | 2024-03-17 16:30 | PC.NURSE ---
Introductions were made, then consulted with patient to assess needs related to . Discussed with mother her?plans to feed?her and the?experience so far. She states that latch seems pretty good and she has more nipple soreness on one side than the other. Encouraged changing positions and calling for help at the next feeding time. Resources provided for inpatient and outpatient services with the feeding sheet, mom/baby guide, admission packet and name/number written on the communication board. Mother voiced understanding of information and will call if there is a request for assistance. Reported to the Primary RN.
[2024-03-17] MEDS: DOCUSATE SODIUM 100 MG CAPSULE PO (17:49)
[2024-03-17] MEDS: METOCLOPRAMIDE HCL INJ 10 MG/2 ML VIAL IV PUSH (17:52)
[2024-03-17] MEDS: ACETAMINOPHEN 325 MG TABLET 650 MG PO (20:14)
[2024-03-17] MEDS: HYDROcodone/acetaminophen (*CRX) 5-325 MG TABLET 1 TAB PO (22:34)
[2024-03-18] MEDS: KETOROLAC 15 MG/ML VIAL (*BKC) IV PUSH (03:58)
[2024-03-18] MEDS: ACETAMINOPHEN 325 MG TABLET 650 MG PO ×4 (03:58→21:37)
[2024-03-18 04:00] VITALS: BP 97/51; PULSE 64; RESP 16; TEMP 37; O2SAT 99
[2024-03-18 04:59] LABS: Basophils Percent Auto 0.4 % (0.2-1.2); Eosinophils Absolute Auto 0.1 K/mm3 (0-0.3); Eosinophils Percent Auto 0.9 % (0-4.4); Hematocrit 32.4 % (37.0-47.0); Hemoglobin 10.8 g/dL (12.0-15.0); Immature Granulocyte Absolute 0.12 K/mm3 (0.00-0.031); Immature Granulocyte Percent A 1.1 % (0-0.5); Lymphocytes Absolute Auto 2.03 K/mm3 (0.9-3.2); Lymphocytes Percent Auto 18.8 % (18.3-44.2); Mean Corpuscular HGB Conc 33.3 g/dl (32-36); Mean Corpuscular Hemoglobin 31.7 pg (26-34); Mean Platelet Volume 11.6 fl (7.4-10.4); Monocytes Absolute Auto 0.9 K/mm3 (0.1-0.6); Neutrophils Absolute Auto 7.7 K/mm3 (1.3-6.7); Neutrophils Percent Auto 70.8 % (45.5-73.1); Platelet Count Result 141 k/mm3 (150-375); Red Blood Count 3.41 M/mm3 (4.2-5.4); Red Cell Distribution Width 12.3 % (11.5-14.5); White Blood Count 10.8 K/mm3 (4.5-10.0)
[2024-03-18] MEDS: HYDROcodone/acetaminophen (*CRX) 10-325 MG TABLET 1 TAB PO ×4 (07:16→23:12)
[2024-03-18 08:15] VITALS: BP 105/51; PULSE 67; RESP 18; TEMP 37.2; O2SAT 98
[2024-03-18] MEDS: SIMETHICONE 80 MG TAB.CHEW PO ×3 (09:30→16:09)
[2024-03-18] MEDS: MULTIVIT/MIN/PREN/FOL AC/IRON TABLET 1 TAB PO (10:22)
[2024-03-18] MEDS: DOCUSATE SODIUM 100 MG CAPSULE PO ×2 (10:22→16:09)
[2024-03-18] MEDS: KETOROLAC 15 MG/ML VIAL (*BKC) (10:23)
--- NOTE | 2024-03-18 10:34 | PC.NURSE ---
Introductions were made, then consulted with patient to assess needs related to . Mother led the conversation with her?plans to feed?her and the?experience so far. Mother plans on exclusively . Per Primary RN, this morning baby had not fed for 7 hours, blood sugar was taken and baby was given a formula bottle, was ok per mother and baby took 20 mls .Encouraged understanding of the benefits of skin to skin (demonstrating unwrapping and placing upright on her chest), stimulating with massage touch, changing positions to encourage wakefulness, how to watch for early feeding cues, responsive feeding, feeding on demand (aiming for 8-12 times in 24 hours, about every 2-3 hours), milk production, building/maintaining a milk supply, duration of feeding, signs of adequate intake/output and how to record on the feeding sheet. Mother works well with her infant with encouragement and education. Reviewed positioning and ear, shoulder, hip alignment, supporting the breast to facilitate a deep latch, asymmetrical latch (off-center), leading with the chin with a big, open, wide gape and body close to mother. Infant latched optimally to the [left] breast in [cross cradle] position. Education given to the mother of how to visualize the suckling (with good rocking jaw motion), swallows (dropping of the lower jaw) and how to listen for drinking at the breast (the ka sound). Infant was [able] to maintain latch without pain to mother protecting the nipple with optimal positioning and latching. Reviewed comfort measures of healing with a warm, wet washcloth to rinse breast, then leave open to air-dry, good handwashing when or touching the breast/nipples to prevent infection. Mother voiced understanding of skin to skin, stimulating with massage touch, responsive feedings, hand expressed colostrum, talking to to encourage if it has been 2 -2.5 hours since the start of the last , to call if infant does not latch, or if there is discomfort with . Resources used for education were facilitated with the [visual educational handouts/ tool/mom and baby guide], Inpatient/outpatient resources provided with business card, feeding sheet, name written on the communication board, and the mom/baby guide. Parents voiced understanding of information, demonstrated learning and will call if there is a request for assistance. Reported to the Primary RN.
--- NOTE | 2024-03-18 14:46 | PC.NURSE ---
1330. Checked on mom to see how afternoon feedings were going. Mom reports that did very well this last feeding latching with no pain in cross cradle position for 20min. Mom encouraged to call in the future for any questions or concerns or if she is unable to get infant to latch. Reported to the primary RN.
[2024-03-18] MEDS: IBUPROFEN 600 MG TABLET PO ×2 (16:10→21:37)
--- NOTE | 2024-03-18 18:33 | WPDANLDPN2 ---
Anes-Prog Note L&D Date/Time: 03/18/24 18:33 Comfortable throughout: section Neuraxial method: spinal Epidural/Spinal procedure site: clean & non-tender Neuro status: Neuro function grossly intact. Cardiovascular status: normal Respiratory status: normal Airway patency: baseline Mental status: baseline Post-Op hydration status: normal Vital Signs: Last Vital Signs Temp 98.9 F 03/18/24 08:15 Pulse 67 03/18/24 08:15 Resp 18 03/18/24 08:15 BP 105/51 L 03/18/24 08:15 Pulse Ox 98 03/18/24 08:15 O2 Del Method Room Air 03/18/24 07:24 Pain score (VAS): 0/10 I/O: Intake & Output 03/18/24 03/18/24 03/18/24 07:59 15:59 23:59 Output Total 400 Balance -400 Post-procedural complaints: none Patient feedback: Patient satisfied with anesthetic care.
--- NOTE | 2024-03-18 18:33 | WPDANLDNPN2 ---
Anes-Prog Note L&D-Neuraxial Date/Time: 03/18/24 18:33 Neuraxial medications: intrathecal PF morphine Opiod-related complaints: none Patient feedback: Patient satisfied with post-operative pain management.
[2024-03-18 20:12] VITALS: BP 122/58; PULSE 71; RESP 16; RESP 20; TEMP 37; O2SAT 97
[2024-03-19] MEDS: ACETAMINOPHEN 325 MG TABLET 650 MG PO ×3 (04:07→17:10)
[2024-03-19] MEDS: IBUPROFEN 600 MG TABLET PO ×3 (04:07→17:10)
[2024-03-19] MEDS: HYDROcodone/acetaminophen (*CRX) 10-325 MG TABLET 1 TAB PO ×3 (04:07→17:10)
[2024-03-19 08:05] VITALS: BP 118/63; PULSE 67; RESP 16; TEMP 36.9; O2SAT 99
[2024-03-19] MEDS: TETANUS,DIPHTHERIA,AC PERTUSSIS ADULT (0.5 ML) BOOSTRIX IM (10:11)
[2024-03-19] MEDS: MULTIVIT/MIN/PREN/FOL AC/IRON TABLET 1 TAB PO (10:13)
[2024-03-19] MEDS: DOCUSATE SODIUM 100 MG CAPSULE PO ×2 (10:13→17:10)
[2024-03-19] MEDS: SIMETHICONE 80 MG TAB.CHEW PO ×3 (10:14→17:09)
[2024-03-19] MEDS: LIDOCAINE 5% PATCH 1 PATCH TRANSDERM (10:19)
--- NOTE | 2024-03-19 10:55 | PC.NURSE ---
Consulted with mother concerning needs and she shared her ability to independently latch infant optimally without pain. Mother had requested hydrogel pads for comfort but states baby is latching very well. Mother plans on being discharged home later today after baby is circumcised. Mother is feeding appropriately for growth of and understands stimulating infant to eat if needed. has had appropriate feedings in the last 24 hours meets the outcomes for weight, output, blood sugar and jaundice at this time. Reinforced understanding of milk production, transition of milk, signs of adequate intake, transition of stool, prevention/relief of engorgement, plugged ducts, mastitis, responsive watching for feeding cues, the different methods of stimulating infant to breastfeed 1-3 hours after the start of the last feeding, community resources, and when to call a provider using the resource of the feeding sheet along with the mom and baby guide. Mother voiced understanding of the information shared, is confident to continue effectively her at home, when to call for assistance, denies any additional assistance or education at this time. Reported to the Primary RN.
[2024-03-20 10:31] VITALS: BP 129/50; PULSE 72; RESP 18; TEMP 37.2; O2SAT 100
== END 2024-03-19 18:20 | disposition home or self-care (01) | DRG 788 ==
LOC: ANHLDR 05:41 → ANHOB2 11:15
PROVIDERS: Admitting Provider Obstetrics & Gynecology; Visit Provider Obstetrics & Gynecology
PROC: 10D00Z1 Extraction of Products of Conception, Low, Open Approach (ICD-10-PCS; CPT 59514; principal; 2024-03-17 07:30)
DX: O34.211 Maternal care for low transverse scar from previous cesarean delivery (principal); Z37.0 Single live birth; Z3A.39 39 weeks gestation of pregnancy; Z14.1 Cystic fibrosis carrier
CPT/HCPCS: 36415; 85025; 90715; A9270; J0690; J1885; J2274; J2371; J2405; J2590; J2704; J2765; J7120

== ENCOUNTER 2024-11-30 18:07 | Emergency (ER) | payer OTHER, SELFPAY ==
--- NOTE | ~2024-11-30 | CT_ITS ---
EXAMINATION: CT abdomen pelvis w con DATE: 11/30/2024 18:45 INDICATION: Right lower quadrant abdominal pain TECHNIQUE: Computed tomography (CT) of the abdomen and pelvis was performed with 100 mL Omnipaque-350 intravenous contrast. Automated exposure control and iterative reconstruction technique were employed. The dose-length product was 366.93 mGy-cm. COMPARISON: None FINDINGS: Mild dependent atelectasis in the right lower lobe. Heart size normal. No pericardial or pleural effusion. Liver, gallbladder, spleen, pancreas, bilateral adrenal glands and kidneys are normal. Bowels including the appendix are normal. Bladder, uterus and left ovary are unremarkable. 1.5 similar right ovarian cyst/follicle. Small amount of likely physiologic free fluid in the cul-de-sac. No pathologically enlarged abdominal or pelvic lymphadenopathy. Bones are unremarkable. IMPRESSION: 1. No acute intra-abdominal/pelvic process. Reviewed, dictated and finalized at location A.
--- OUTSIDE RECORDS SUMMARY | 2024-11-30 18:09 | XMS_ITS | Clinical Summary ---
Author Organization [facility] Address [address] [place] [address] Care Team Providers Care Health Sciences Department Chair Name Role Phone Unavailable Primary Care Provider Unavailabl e Source Comments [facility],non-owned Affiliates and Associated Physician Practices is amultiple site organization consisting of ambulatory clinics and hospital sitesin [place], [place], [place]. This disclosure is being madepursuant to the Care Everywhere program and may not contain all information available regarding this patient. Last updated 17.[facility] Social History Tobacco Use Types Packs/Day Years Used Date Smoking Tobacco: Never Assessed Comments No Sex and Gender Information Value Date Recorded Sex Assigned at Not on file Legal Sex Female 9:27 AM CDT Gender Identity Not on file Sexual Orientation Not on file Plan of Treatment Health Maintenance Due Date Last Done Comments HIV SCREENING 2005 HEPATITIS C SCREENING 03/08/2008 DTAP/TDAP/TD VACCINES (1 - Tdap) 2009 HEPATITIS B VACCINE (1 of 3 - 19+ 3-dose series) 2009 PAP SMEAR 2011 HPV VACCINE (1 - 3-dose SCDM series) 2017 COVID-19 VACCINE (4 - 2023-2 5 season) 2023 04/10/2021, 05/17/2020, 04/26/2020 DEPRESSION SCREENING 04/01/2024 INFLUENZA VACCINE (#1) 2024 ZOSTER VACCINE (1 of 2) 2040 HIB VACCINE Aged Out No longer eligi ble based on patient's age to complete this topic MENINGOCOCCAL (Group B) VACCINE SHARED DECISION-MAKING Aged Out No longer eligible based on patient's age to complete this topic MENINGOCOCCAL GROUPS A/C/Y/W VACCINE Aged Out No longer eligible b ased on patient's age to complete this topic PNEUMOCOCCAL VACCINE Aged Out No long er eligible based on patient's age to complete this topic Insurance [place] [id number] [place] [id number]
[2024-11-30 18:13] VITALS: BP 128/83; PULSE 74; RESP 14; TEMP 36.8; O2SAT 100
[2024-11-30 18:27] VITALS: BP 120/77; PULSE 72; RESP 16; O2SAT 99
[2024-11-30 18:30] LABS: BEDSIDEPREGUCG Negative (Negative)
--- NOTE | 2024-11-30 18:34 | ED.GENADULT ---
HPI - General Adult General Chief complaint: Abdominal Pain Stated complaint: abdominal pain Time Seen by Provider: 11/30/24 18:09 History of Present Illness HPI narrative: Patient is a 34-year-old female who presents ER with abdominal pain. Began the epigastric area earlier today. Has persisted throughout the day. No significant modification with eating or drinking. It was also hurting with walking tonight. He started moved down into her lower abdomen. No urinary frequency urgency or dysuria. No diarrhea or constipation. No vomiting. Related Data Home Medications ?Medication ?Instructions ?Recorded ?Confirmed ?Last Taken ?Type magnesium 200 mg tablet 400 mg PO DAILY 12/09/20 02/26/24 1 Day Ago History ~02/25/24 omega-3 fatty acids 2,500 mg PO DAILY 12/09/20 02/26/24 1 Day Ago History ~02/25/24 prenat.vits,frank,ieo-tmva-dcdga 1 tablet PO DAILY 12/09/20 02/26/24 1 Day Ago History ~02/25/24 Allergies Allergy/AdvReac Type Severity Reaction Status Date / Time No Known Allergies Allergy Verified 11/30/24 18:27 Review of Systems Review of Systems: All systems reviewed & are unremarkable except as noted in HPI and below Constitutional: Constitutional: Reports no additional constitutional complaints ENT: Reports system reviewed and no additional complaints, except as documented Cardiovascular: Cardiovascular: Reports no additional cardiovascular complaints Respiratory: Respiratory: Reports no additional respiratory complaints Gastrointestinal: Gastrointestinal: Reports no additional gastrointestinal complaints Genitourinary: Genitourinary: Reports no additional female genitourinary complaints [facility] Past Medical History Medical History Cystic fibrosis carrier Anxiety IBS (irritable bowel syndrome) Depression Acid reflux Surgical History Surgical History History of section Family History Family History Grandparent Carcinoma of colon Hypertension Social History Social History Years smoked: 10 Smoking status: Former smoker Tobacco type: cigarettes Second hand tobacco smoke exposure: No Alcohol intake: current Substance use: never Substance use type: does not use and marijuana Spiritual care concerns: No Exam Narrative: GENERAL: Well-appearing, well-nourished, and in no acute distress. HEAD: Normocephalic, atraumatic. ENT: Mucous membranes moist. CHEST: Clear to auscultation. No respiratory distress. HEART: Regular rate and rhythm. Normal peripheral pulses. ABDOMEN: Soft, mild tenderness in lower abdomen right greater than left, nondistended. EXTREMITIES: Normal range of motion. No edema. SKIN: Warm, dry, no rash. NEURO: Alert and oriented x3. PSYCH: Normal mood and affect. Course Course Emergency Course: Unremarkable evaluation ER. Lab work normal. No abnormality on CT. Mild constipation. Recommend mild stool softener for home. Discussed return precautions. Vital Signs Vital signs: Vital Signs Temperature 98.2 F 11/30/24 18:13 Pulse Rate 74 11/30/24 18:13 Respiratory Rate 14 11/30/24 18:13 Blood Pressure 128/83 11/30/24 18:13 Pulse Oximetry 100 11/30/24 18:13 Oxygen Delivery Room Air 11/30/24 18:13 Temperature 98.2 F 11/30/24 18:13 Pulse Rate 72 11/30/24 18:27 Respiratory Rate 16 11/30/24 18:27 Blood Pressure 120/77 11/30/24 18:27 Pulse Oximetry 99 11/30/24 18:27 Oxygen Delivery Room Air 11/30/24 18:13 Medical Decision Making Vital Signs Vital Signs: Vital Signs Temperature 98.2 F 11/30/24 18:13 Pulse Rate 74 11/30/24 18:13 Respiratory Rate 14 11/30/24 18:13 Blood Pressure 128/83 11/30/24 18:13 Pulse Oximetry 100 11/30/24 18:13 Oxygen Delivery Room Air 11/30/24 18:13 Temperature 98.2 F 11/30/24 18:13 Pulse Rate 72 11/30/24 18:27 Respiratory Rate 16 11/30/24 18:27 Blood Pressure 120/77 11/30/24 18:27 Pulse Oximetry 99 11/30/24 18:27 Oxygen Delivery Room Air 11/30/24 18:13 Lab Data 11/30/24 18:28 11/30/24 18:39 Labs: Lab Results 11/30/24 11/30/24 11/30/24 Range/Units 18:27 18:28 18:39 WBC 8.8 (4.5-10.0) K/mm3 RBC 4.43 (4.2-5.4) M/mm3 Hgb 13.3 (12.0-15.0) g/dL Hct 40.6 (37.0-47.0) % MCV 91.6 (80-100) fl MCH 30.0 (26-34) pg MCHC 32.8 (32-36) g/dl RDW 12.2 (11.5-14.5) % Plt Count 278 D (150-375) k/mm3 MPV 10.4 (7.4-10.4) fl Immature Gran % (Auto) 0.3 (0-0.5) % Neut % (Auto) 75.8 H (45.5-73.1) % Lymph % (Auto) 16.2 L (18.3-44.2) % [place] % (Auto) 6.1 (2.6-8.5) % Eos % (Auto) 1.0 (0-4.4) % Baso % (Auto) 0.6 (0.2-1.2) % Lymph # (Auto) 1.43 (0.9-3.2) K/mm3 [place] # (Auto) 0.5 (0.1-0.6) K/mm3 Eos # (Auto) 0.1 (0-0.3) K/mm3 Baso # (Auto) 0.1 (0.0-0.1) K/mm3 Abs Immat Gran (auto) 0.03 (0.00-0.031) K/mm3 Absolute Neuts (auto) 6.7 (1.3-6.7) K/mm3 Absolute Nucleated RBC 0.000 (0.0-0.012) K/mm3 Nucleated RBC % 0.0 (0.0-0.2) % Sodium 138 (137-145) mmol/L Potassium 3.9 (3.4-5.0) mmol/L Chloride 103 (98-107) mmol/L Carbon Dioxide 27 (22-30) mmol/L Anion Gap 8 (4-12) mmol/L BUN 18 H (7-17) mg/dL Creatinine 0.87 0.90 (0.7-1.0) mg/dL Estim Creat Clear Calc 75 72 ml/min Estimated GFR > 60 > 60 (59 - ) Glucose 106 (65-110) mg/dL Calcium 9.5 (8.4-10.2) mg/dL Total Bilirubin 0.4 (0.2-1.3) mg/dL AST 24 (14-36) U/L ALT 20 (6-35) U/L Alkaline Phosphatase 48 (38-126) U/L Total Protein 7.3 (6.3-8.2) g/dL Albumin 4.6 (3.5-5.1) g/dL Lipase 59 (23-300) U/L Urine Color Yellow (Yellow) Urine Appearance Clear (Clear) Urine pH 6.0 (5.0-9.0) Ur Specific [place] 1.005 (1.001-1.035) Urine Protein Negative (Negative) mg/dL Urine Glucose (UA) Negative (Negative) mg/dL Urine Ketones Negative (Negative) mg/dL Ur Blood (Man) Negative (Negative) Urine Nitrate Negative (Negative) Urine Bilirubin Negative (Negative) Urine Urobilinogen 0.2 (<2.0) mg/dL Leukocyte Esterase Rfl Trace H (Negative) ROCIO/UL Urine RBC 0-2 (0-2) /hpf Urine WBC 0-5 (0-3) /hpf Ur Squamous Epith Cells Occasional (Few) /hpf Urine Bacteria None seen /hpf Urine Casts 0-2 POC Urine HCG, Qual Negative (Negative) Imaging Data Radiologist's impression: ITS Impressions Abdomen/Pelvis CT 11/30/24 18:55 IMPRESSION: 1. No acute intra-abdominal/pelvic process. Discharge Plan Discharge Clinical Impression: Lower abdominal pain Patient Disposition: Home Condition: Stable Instructions: Constipation (ED), Abdominal Pain (ED) Additional Instructions: Return to the emergency department if you develop severe abdominal pain, severe nausea and vomiting to the point where you are unable to keep down fluids, if you develop chest pain or difficulty breathing, blood in your stool, dizziness or fainting, or if you develop any other new or concerning symptoms as these could be signs of more serious medical illness. Try to stay well hydrated. Patient Language: French Prescriptions: No Action magnesium 200 mg Tablet 400 mg PO DAILY prenat.vits,frank,jsa-ugpi-egzlo Tablet 1 tablet PO DAILY omega-3 fatty acids Capsule 2,500 mg PO DAILY Follow-up/Referrals: PHYSICIAN NOT ON STAFF,NONSTAFF [Primary Care Provider] - 1 Week
[2024-11-30 18:36] LABS: Hematocrit 40.6 % (37.0-47.0); Hemoglobin 13.3 g/dL (12.0-15.0); Immature Granulocyte Percent A 0.3 % (0-0.5); Lymphocytes Absolute Auto 1.43 K/mm3 (0.9-3.2); Mean Corpuscular HGB Conc 32.8 g/dl (32-36); Mean Corpuscular Hemoglobin 30.0 pg (26-34); Mean Corpuscular Volume 91.6 fl (80-100); Nucleated Red Blood Cells Absolute Auto 0.000 K/mm3 (0.0-0.012); Nucleated Red Blood Cells Perc 0.0 % (0.0-0.2); Platelet Count Result 278 k/mm3 (150-375); Red Blood Count 4.43 M/mm3 (4.2-5.4); White Blood Count 8.8 K/mm3 (4.5-10.0)
[2024-11-30 18:41] LABS: Estimated CRCL calculation 72 ml/min; Estimated Glomerular Filt Rate > 60
[2024-11-30 18:41] LABS: Add Urine Microscopic? YES; Appearance Urine Clear (Clear); Glucose Urine UA Negative (Negative); Leukocyte Esterase Ur Trace LEU/UL (Negative); Nitrate Urine Negative (Negative); Non Pathogenic Casts 0-2; Specific Grav Ur 1.005 (1.001-1.035)
[2024-11-30 18:46] LABS: Alanine Aminotransferase 20 U/L (6-35); Albumin Level 4.6 g/dL (3.5-5.1); Alkaline Phosphatase 48 U/L (38-126); Anion Gap 8 mmol/L (4-12); Aspartate Amino Transferase 24 U/L (14-36); Bilirubin,Total 0.4 mg/dL (0.2-1.3); Blood Urea Nitrogen 18 mg/dL (7-17); Calcium 9.5 mg/dL (8.4-10.2); Carbon Dioxide 27 mmol/L (22-30); Chloride 103 mmol/L (98-107); Estimated CRCL calculation 75 ml/min; Estimated Glomerular Filt Rate > 60; Glucose 106 mg/dL (65-110); Lipase 59 U/L (23-300); Potassium 3.9 mmol/L (3.4-5.0); Sodium 138 mmol/L (137-145); Total Protein 7.3 g/dL (6.3-8.2)
[2024-11-30 19:27] VITALS: BP 121/78; PULSE 69; RESP 18; TEMP 37.1; O2SAT 99
== END 2024-11-30 19:28 | disposition home or self-care (01) ==
PROVIDERS: Emergency Provider Emergency Medicine
DX: R10.30 Lower abdominal pain, unspecified (principal); F41.9 Anxiety disorder, unspecified; F32.A Depression, unspecified
CPT/HCPCS: 36415; 74177; 80053; 81001; 81025; 83690; 85025; 99284; Q9967